=== PATIENT | female | born 1950 | race Caucasian/White ===

== ENCOUNTER → 2023-04-02 16:31 | Outpatient (CLI) | payer MEDICARE, OTHER, SELFPAY ==
--- NOTE | 2023-04-02 16:50 | DI.RAD.S_ITS ---
PROCEDURE: XR TOE LT MIN 2V INDICATIONS: PAIN FRACTURE TECHNIQUE: AP view of the foot and two views of the great toe acquired. COMPARISON: None. FINDINGS: Bones: There is a comminuted mildly displaced intra-articular fracture of the 1st proximal phalangeal head. Generalized osteopenia. Soft tissues: No suspicious soft tissue densities. IMPRESSION: Comminuted mildly displaced intra-articular fracture of the 1st proximal phalangeal head. Approved by: Jonh Campbell M.D. on 04/03/2023 at 13:37
== END ==
PROVIDERS: Referring Provider Podiatrist Foot & Ankle Surgery; Visit Provider Podiatrist Foot & Ankle Surgery
DX: S92.412A Displaced fracture of proximal phalanx of left great toe, initial encounter for closed fracture (principal); M25.572 Pain in left ankle and joints of left foot
CPT/HCPCS: 73660

== ENCOUNTER → 2023-04-10 12:28 | Outpatient (CLI) | payer MEDICARE, OTHER, SELFPAY ==
--- NOTE | 2023-04-10 | DI.RAD.S_ITS ---
Bone Density Report Name: AYAN COATES Age: 72 Sex: Female Ethnicity: White Date of : 1950 Indication: postmenopausal; screening for osteoporosis; Referring Provider: BALAJI HARVEY Study: Bone densitometry was performed. Exam Date: April 10, 2023 Accession number: [id number] Bone Density: Region BMD T-score Z-score Classification AP Spine(L1-L4) 0.930 -1.1 1.1 Osteopenia World Health Organization criteria for BMD impression classify patients as: Normal (T-score at or above -1.0), Osteopenia (T-score between -1.0 and -2.5), or Osteoporosis (T-score at or below -2.5). Impression: The patient has low bone mass, based on the Total Spine T-score. Discussion: BONE DENSITY IS LOW AT ONE OR MORE SKELETAL SITES. This patient's lowest T-score is low at one or more skeletal sites. It meets the World Health Organization's (WHO) criteria for low bone mass (T-score between -1.0 and -2.5). The patient's 10-year risk of fracture as calculated by FRAX is less than the threshold where pharmacological therapy is recommended by the National Osteoporosis Foundation (NOF). However, all treatment decisions require clinical judgment and consideration of individual patient factors, including patient preferences, comorbidities, previous drug use, risk factors not captured in the FRAX model (e.g., frailty, falls, vitamin D deficiency, increased bone turnover, interval significant decline in bone density) and possible under or overestimation of fracture risk by FRAX. The patient should follow a healthful lifestyle (good nutrition with adequate calcium and vitamin D, and appropriate weight-bearing exercise). Follow-Up: Consider repeating this study in 2 to 3 years to reassess this patient's status, or sooner if there is some new clinical indication. Reported by: MARCELL MELENDEZ M.D. on 04/11/2023 4:54:00 PM.
== END ==
PROVIDERS: Referring Provider Podiatrist Foot & Ankle Surgery; Visit Provider Podiatrist Foot & Ankle Surgery
DX: Z13.820 Encounter for screening for osteoporosis; S92.912A Unspecified fracture of left toe(s), initial encounter for closed fracture; Z78.0 Asymptomatic menopausal state; M85.88 Other specified disorders of bone density and structure, other site; Z90.710 Acquired absence of both cervix and uterus
CPT/HCPCS: 77080

== ENCOUNTER → 2023-05-07 16:25 | Outpatient (CLI) | payer MEDICARE, OTHER, SELFPAY ==
--- NOTE | 2023-05-07 | DI.RAD.S_ITS ---
PROCEDURE: XR FOOT LT MIN 3V INDICATIONS: f/u fx TECHNIQUE: 3 views of the foot were acquired. COMPARISON: [facility], CR, XR TOE LT MIN 2V, 04/02/2023, 17:04. FINDINGS: Bones: Redemonstration of comminuted displaced intra-articular fracture of the distal aspect of the proximal 1st phalanx. Mild callus formation to suggest healing. Soft tissues: No tibiotalar joint effusion. Achilles tendon appears normal. IMPRESSION: Healing fracture of the distal aspect of the 1st proximal phalanx. Dictated by: El Gallegos M.D. on 05/08/2023 at 10:40 Approved by: El Gallegos M.D. on 05/08/2023 at 10:42
== END ==
PROVIDERS: Referring Provider Podiatrist Foot & Ankle Surgery; Visit Provider Podiatrist Foot & Ankle Surgery
DX: S92.412D Displaced fracture of proximal phalanx of left great toe, subsequent encounter for fracture with routine healing (principal)
CPT/HCPCS: 73630

== ENCOUNTER 2023-06-18 10:35 | Emergency (ER) | payer MEDICARE, OTHER, SELFPAY ==
[2023-06-18 10:43] VITALS: BP 108/56; PULSE 90; RESP 15; TEMP 36.6; O2SAT 99; BMI 18.3
--- NOTE | 2023-06-18 11:45 | ED_ITS ---
HPI - Head Injury <Marlin Morris PA-C - Last Filed: 06/18/23 12:02> General Chief complaint: Head Injury Stated complaint: fall, head injury/bleeding Time Seen by Provider: 06/18/23 10:46 Source: patient and family Mode of arrival: Ambulatory History of Present Illness HPI Narrative: Patient is a 72-year-old female with Parkinson's disease who presents to the emergency room after a fall. She was attempting to put on her slippers and lost her balance, and hit her forehead on the corner of a book shelf when she fell. She is not taken any blood thinner medicines. She did not lose consciousness. The fall was not preceded by dizziness or syncope. Patient and her report that she falls frequently, 2 to 3 times a week. She has double vision at baseline as a complication of her Parkinson disease. She has no new vision changes, no headache, no nausea or vomiting today. Related Data Allergies Allergy/AdvReac Type Severity Reaction Status Date / Time Penicillins Allergy Intermediate Hives Verified 06/18/23 10:47 Review of Systems <Marlin Morris PA-C - Last Filed: 06/18/23 12:02> Review of Systems ROS Unobtainable: All systems reviewed & are unremarkable except as noted in HPI and below Patient History <Marlin Morris PA-C - Last Filed: 06/18/23 12:02> Social History Smoking Status: Never smoker Smoking Status: Never smoker alcohol intake frequency: 0-2 drinks per day Substance Use Type: does not use Exam <Marlin Morris PA-C - Last Filed: 06/18/23 12:02> Narrative Exam Narrative: GENERAL: 72 year old patient appears stated age. Well-developed patient, in no distress. Patient has parkinsonian tremor. NEURO: AOx3. HEAD: Laceration on left forehead. Laceration is approximately 2.5 cm long, edges are quite thin. No tenderness with skull palpation, no evidence of depressed skull fracture. EYES: Pupils equal round and reactive. Extraocular motions intact. No scleral icterus. No injection or drainage. ENT: Nose without bleeding or purulent drainage. Throat without erythema, tonsillar hypertrophy or exudate. Airway patent. No eden sign. RESPIRATORY: No distress, no increased work of breathing EXTREMITIES: No edema or joint tenderness. SKIN: No rash or erythema of visible areas Initial Vital Signs Initial Vital Signs: Vital Signs Temperature 97.8 F 06/18/23 10:43 Pulse Rate 90 06/18/23 10:43 Respiratory Rate 15 06/18/23 10:43 Blood Pressure 108/56 L 06/18/23 10:43 Pulse Oximetry 99 06/18/23 10:43 Oxygen Delivery Method Room Air 06/18/23 10:43 <Eleni Chapa MD - Last Filed: 06/18/23 19:09> Initial Vital Signs Initial Vital Signs: Vital Signs Temperature 97.8 F 06/18/23 10:43 Pulse Rate 90 06/18/23 10:43 Respiratory Rate 15 06/18/23 10:43 Blood Pressure 108/56 L 06/18/23 10:43 Pulse Oximetry 99 06/18/23 10:43 Oxygen Delivery Method Room Air 06/18/23 10:43 Procedures <Marlin Morris PA-C - Last Filed: 06/18/23 12:02> Laceration Repair Laceration 1: Time of procedure: 11:21 Site: face (left forehead) Side (If applicable): left Size (cm): 2.5 Description: linear, flap and clean Depth: simple, single layer Local Anesthetic: lidocaine 2% Amount of anesthesia used (mL): 1 Pre-repair: wound explored and irrigated extensively Skin layer closed with: nylon Skin layer suture size: 6-0 Number of sutures: 5 Technique: simple, interrupted Course <Marlin Morris PA-C - Last Filed: 06/18/23 12:02> Orders Ordered: Discontinued Medications Bacitracin (Bacitracin Oint 0.9 Gm Pckt) 1 applic TOP NOW ONE Stop: 06/18/23 11:43 Last Admin: 06/18/23 11:58 Dose: 1 applic Documented By: OW Vital Signs Vital signs: Vital Signs - 8 hr 06/18/23 12:07 Pulse Rate 81 Respiratory Rate 20 Blood Pressure 142/61 H Pulse Oximetry 100 Oxygen Delivery Method Room Air <Eleni Chapa MD - Last Filed: 06/18/23 19:09> Orders Ordered: Discontinued Medications Bacitracin (Bacitracin Oint 0.9 Gm Pckt) 1 applic TOP NOW ONE Stop: 06/18/23 11:43 Last Admin: 06/18/23 11:58 Dose: 1 applic Documented By: OW Vital Signs Vital signs: Vital Signs - 8 hr 06/18/23 12:07 Pulse Rate 81 Respiratory Rate 20 Blood Pressure 142/61 H Pulse Oximetry 100 Oxygen Delivery Method Room Air MDM - Head Injury <Marlin Morris PA-C - Last Filed: 06/18/23 12:02> MDM Narrative Medical decision making narrative: Multiple etiologies for patient's symptoms considered including, but not limited to: Scalp laceration, skull fracture, intracranial bleed. Patient, patient's and I had a shared decision-making conversation about obtaining CT of the head to rule out intracranial bleeding. Patient does not take any blood thinner medicines. Patient and her both believe that she is at her baseline and do not wish to proceed with a head CT. I agree that this is reasonable, discussed strict return precautions if she develops any symptoms. 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 The laceration repaired as documented above. Patient tolerated well. Patient discharged, verbalizes return precautions and laceration care. Patient's symptoms improved over duration of stay with above-stated therapies. Findings and discharge diagnosis discussed with patient/family followed by verbalization of understanding Return precautions discussed with patient/family whom verbalize understanding of diagnosis and plan Discharge Plan Departure Patient Disposition: Home Clinical Impression: Laceration of scalp Qualifiers: Encounter type: initial encounter Qualified Code(s): S01.01XA - Laceration without foreign body of scalp, initial encounter Instructions: DI for Closed Head Injury, How to Care for a Surgical Wound- Stitches Activity Restrictions/Additional Instructions: *You have been diagnosed with scalp laceration. Please apply bacitracin ointment twice a day to help prevent infection. The sutures can be removed in 5-7 days, depending on healing. You can come back to the ER or to the walk-in clinic for suture removal. As we discussed, we decided together not to do a CT scan of your head today. If you have any severe headache, change in mental status, nausea, vomiting, or new vision changes, you should return for reassessment and imaging of your head. *What to do: *Please continue to take your regular medications as directed. [ ] New medication prescriptions sent to your pharmacy: [ ] [ ] New medication written as a paper prescription [x] No new medications given *Please follow up with your primary care provider in 2-3 days, call for an appointment. Let them know you were seen in the Emergency Department and that we ask that you be seen in follow up. We will electronically transmit a record of today's note if your PCP is in our system *If you do not have a primary care provider please contact the [facility] Resource line at [phone]. They will ask some questions about your medical history and help get you set up with a doctor in the community. *Return to Emergency Department if you should have any new, worsening or concerning symptoms, such as [fever greater than 101 F, shaking chills, worsening pain, persistent vomiting or other concerning symptoms]. Stand Alone Forms: Patient Portal/API ED Sign-out <Eleni Chapa MD - Last Filed: 06/18/23 19:09> Cosign ED Attending Johnature Attestation: I did not see this patient. I was available all times for consultation.
[2023-06-18] MEDS: BACITRACIN OINT 0.9 GM PCKT 1 APPLIC TOP (11:58)
[2023-06-18 12:07] VITALS: BP 142/61; PULSE 81; RESP 20; O2SAT 100
== END 2023-06-18 12:09 | disposition home or self-care (01) ==
PROVIDERS: Emergency Provider Physician Assistant
DX: S01.01XA Laceration without foreign body of scalp, initial encounter (principal); W18.30XA Fall on same level, unspecified, initial encounter; G20.A1 Parkinson's disease without dyskinesia, without mention of fluctuations
CPT/HCPCS: 12011; 99282; 99283

== ENCOUNTER 2025-06-18 04:30 | Emergency (ER) | payer MEDICARE, OTHER, SELFPAY ==
[2025-06-18] VITALS (10 sets, daily range): BP systolic 135–183; BP diastolic 68–83; PULSE 71–89; RESP 14–53; TEMP 36.4; O2SAT 94–99; BMI 19.0
--- NOTE | 2025-06-18 04:36 | DI.CT.S_ITS ---
PROCEDURE: CT FACIAL BONES WO CON INDICATIONS: GLF, ?facial injuries TECHNIQUE: Noncontrast 2.5 mm thick axial images acquired from the mandible through the frontal sinuses, with coronal and sagittal reformatting. For radiation dose reduction, the following was used: automated exposure control, adjustment of mA and/or kV according to patient size. COMPARISON: None. FINDINGS: Image quality: Excellent. Bones and teeth: Orbital wu are intact. Sinus wu show no fracture or deformity. Nasal bones and septum are intact. Visualized portions of the mandible demonstrate no fractures or subluxation. Zygomatic arches are intact. Pterygoid plates are intact. Visualized portions of the skull base and auditory canals are intact. Sinuses: Paranasal sinuses are aerated, without fluid levels, mucosal thickening, or mucoceles. Mastoid air cells are aerated. Soft tissues: No edema, masses, or fluid collections. No enlarged lymph nodes. No soft tissue lacerations or debris. Vascular: Visualized vascular structures appear normal in the absence of contrast. Bony vascular foramina and canals are intact. IMPRESSION: No acute facial fractures. Dictated by: El Gallegos M.D. on 06/18/2025 at 6:39 Approved by: El Gallegos M.D. on 06/18/2025 at 6:41
--- NOTE | 2025-06-18 04:36 | DI.CT.S_ITS ---
PROCEDURE: CT HEAD/BRAIN WO CON INDICATIONS: GLF TECHNIQUE: Noncontrast 4.5 mm thick angled axial sections acquired from the foramen magnum to the vertex, with coronal and sagittal reformats. For radiation dose reduction, the following was used: automated exposure control, adjustment of mA and/or kV according to patient size. COMPARISON: None. FINDINGS: Image quality: Diagnostic. CSF spaces: Basal cisterns are patent. No extra-axial fluid collections. The ventricles are symmetric in size and shape. Brain: No intracranial bleeds or mass effect. There is cerebral volume loss, with resultant ventricular and sulcal prominence. Bilateral deep brain stimulators in place. There are periventricular and deep white matter chronic small vessel ischemic changes. There is intracranial internal carotid artery atherosclerosis. Skull and face: Calvarium and visualized facial bones appear intact, without suspicious lesions. Sinuses: Visualized sinuses and mastoids are clear. IMPRESSION: No acute intracranial pathology. Deep brain stimulators in place. Dictated by: El Gallegos M.D. on 06/18/2025 at 6:37 Approved by: El Gallegos M.D. on 06/18/2025 at 6:39
--- NOTE | 2025-06-18 04:36 | DI.CT.S_ITS ---
PROCEDURE: CT CERVICAL SPINE WO CON INDICATIONS: GLF TECHNIQUE: Noncontrast 3 mm thick sections acquired from the skull base to the T4 level. Sagittal and coronal reformats were then constructed. For radiation dose reduction, the following was used: automated exposure control, adjustment of mA and/or kV according to patient size. COMPARISON: None. FINDINGS: Image quality: Excellent. Bones: No fractures or dislocations. Multilevel degenerative changes with reversal the normal cervical lordosis. Decreased osseous mineralization. Visualized superior ribs are intact. Soft tissues: Prevertebral soft tissues are normal in thickness. No paravertebral hematomas. No apical pneumothoraces. IMPRESSION: No displaced fracture or traumatic subluxation. Dictated by: El Gallegos M.D. on 06/18/2025 at 6:41 Approved by: El Gallegos M.D. on 06/18/2025 at 6:42
--- NOTE | 2025-06-18 04:38 | EKG_ITS ---
[place] [id number] [address] [place] [id number] Test Date: 2025-06-18 Pat Name: Kaylen Herrera Department: [facility] Room: Gender: Female Cost Consultant: TONY : 1950 Requested By: Order Number: [id number] Reading MD: Marin Keller MD Measurements Intervals [place] Rate: 83 P: 108 [place]: 122 QRS: 38 QRSD: 72 T: 109 QT: 384 QTc: 451 Interpretive Statements Normal sinus rhythm Abnormal QRS-T angle, consider primary T wave abnormality Electronically Signed On 06-18-2025 7:26:13 PDT by Marin Keller MD
--- NOTE | 2025-06-18 04:40 | ED_ITS ---
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 Saavedra at [facility], status post deep brain stimulator surgery for her parkinsonism with battery device right upper anterior chest, had right V1 distribution ophthalmic branch cutaneous zoster infection 3 weeks ago status post Valtrex oral course and residual dermatomal scarring, frequent diarrhea awaiting possible diverting colostomy surgery [facility], with history of frequent falls. Sleeps in a separate room from due to Parkinson associated focalization during sleep, baby monitoring by , heard an audible thumb through the monitoring system, found patient in bathroom with posterior scalp laceration and blood on the floor. Unclear if she had lost consciousness. No suspected seizure, no history of seizures, no incontinence of urine or stool. Could not recall preceding chest pain or shortness of breath, palpitations, focal weakness to face arm or leg, focal numbness to face arm or leg. Denies recent fevers, chills, nausea, vomiting, painful or frequent urination, back pain, abdominal pain, chest pain. She does not take blood thinner medications. She does not remember the details of the incident. She has not take chronic anticoagulation. Right pupil not known to be larger than left pupil. Nausea or vomiting. Has arthritic/deformity left hand apparently not felt to be rheumatoid arthritis, of unclear cause. Related Data Allergies Allergy/AdvReac Type Severity Reaction Status Date / Time Penicillins Allergy Intermediate Hives Verified 06/18/25 04:39 Patient History <Prateek Olivas MD - Last Filed: 06/18/25 08:58> Social History Smoking Status: Never smoker alcohol intake frequency: 0-2 drinks per day Exam <Prateek Olivas MD - Last Filed: 06/18/25 08:58> Narrative Exam Narrative: GENERAL: Well-developed patient, in mild distress. HEAD: Posterior-vertex -midline serpentine shaped 5-cm laceration without crepitance, scarring in distribution of V1 ophthalmic branch right side consistent with reported history of recent herpes zoster earlier this month, without vesicles, without redness/cellulitis changes. EYES: Pupils equal round and reactive. Extraocular motions intact. No scleral icterus. No injection or drainage. Right eyelid seems to be held in preference closed position when she is looking around, she can actively open it however when asked to open her eyes. Right pupil 4 mm compared to 2.5-3 mm left pupil, both seem reactive. Conjugate gaze. ENT: Nose without bleeding, purulent drainage. Throat without erythema, tonsillar hypertrophy or exudate. Airway patent. Dental appliance mouth guard like plastic upper teeth, some missing but not acutely injured in appearance. NECK: Trachea midline. Non tender CARDIOVASCULAR: Regular rate and rhythm without murmurs, gallops, or rubs. RESPIRATORY: Clear to auscultation. Breath sounds equal bilaterally. No wheezes, rales, or rhonchi. GASTROINTESTINAL: Abdomen soft, non-tender, nondistended. EXTREMITIES: No edema or joint tenderness. Subluxation ulnar deviation of left hand which seems to be held in slight flexion, apparently not felt to be rheumatoid arthritis, might be neurologic, chronic and unchanged per at bedside. Scattered scabs lower extremities without obvious edema or gross deformities. BACK: Nontender without deformity or crepitance. No flank tenderness. NEURO: AOx3. Jvxns-owfudmf-anau-left left pupil that seem reactive. No obvious facial droop. Right V1 cutaneous scarring from recent zoster infection. Right eyelid tends to be held in closed position when looking around, but can be open to command. Motor 5/5 upper and lower extremities (ulnar deviation MCPs left- hand might be arthritic, versus post neuralgia/neuropathic, no hand muscle wasting, no similar changes to the contralateral MCPs) SKIN: No rash or erythema of visible areas Initial Vital Signs Initial Vital Signs: Vital Signs Temperature 97.5 F L 06/18/25 04:39 Pulse Rate 74 06/18/25 04:39 Respiratory Rate 16 06/18/25 04:39 Blood Pressure 183/83 H 06/18/25 04:39 Pulse Oximetry 99 06/18/25 04:39 Oxygen Delivery Method Room Air 06/18/25 04:39 <Aav Amin DO - Last Filed: 06/18/25 11:06> Initial Vital Signs Initial Vital Signs: Vital Signs Temperature 97.5 F L 06/18/25 04:39 Pulse Rate 74 06/18/25 04:39 Respiratory Rate 16 06/18/25 04:39 Blood Pressure 183/83 H 06/18/25 04:39 Pulse Oximetry 99 06/18/25 04:39 Oxygen Delivery Method Room Air 06/18/25 04:39 Procedures <Prateek Olivas MD - Last Filed: 06/18/25 08:58> Laceration Repair Laceration 1: Time of procedure: 06:15 Site: scalp (Serpentine posterior vertex midline scalp, no visible foreign body or galea) Size (cm): 5 Description: linear (Serpentine) Depth: simple, single layer Local Anesthetic: lidocaine 1% and with epi Amount of anesthesia used (mL): 5 Pre-repair: wound explored and irrigated extensively Skin layer closed with: ash Number of sutures: 5 Course <Prateek Olivas MD - Last Filed: 06/18/25 08:58> Orders Ordered: ED Orders 06/18/25 04:36 CT cervical spine wo con Stat CT facial bones wo con Stat CT head/brain wo con Stat 06/18/25 04:38 EKG-12 Lead Stat 06/18/25 04:42 Complete Blood Count AUTO DIFF Stat Comprehensive Metabolic Panel Stat Lipase Stat Magnesium Stat NT-proBNP (BNP-Adult 18+) Stat Prothrombin Time INR Stat Troponin I Stat 06/18/25 06:55 Troponin I Stat Discontinued Medications Lidocaine/Epinephrine (Lidocaine 1% W/Epi 10ml) 4 ml INJ INTRA-OP ONE Stop: 06/18/25 06:00 Last Admin: 06/18/25 07:01 Dose: 4 ml Documented By: HNG Vital Signs Vital signs: Vital Signs - 8 hr 06/18/25 04:39 06/18/25 05:15 06/18/25 05:17 Temperature 97.5 F L Pulse Rate 74 Respiratory Rate 16 Blood Pressure 183/83 H 159/81 H Pulse Oximetry 99 94 Oxygen Delivery Method Room Air 06/18/25 05:17 06/18/25 05:30 06/18/25 05:30 Temperature Pulse Rate 89 86 Respiratory Rate 38 H Blood Pressure 146/71 H Pulse Oximetry 95 94 Oxygen Delivery Method 06/18/25 06:00 06/18/25 06:00 06/18/25 06:30 Temperature Pulse Rate 87 80 Respiratory Rate 53 H 39 H Blood Pressure 148/80 H Pulse Oximetry 98 98 Oxygen Delivery Method 06/18/25 06:30 06/18/25 07:00 06/18/25 07:00 Temperature Pulse Rate 77 Respiratory Rate 14 Blood Pressure 152/72 H 138/68 Pulse Oximetry 97 Oxygen Delivery Method 06/18/25 07:30 06/18/25 07:30 06/18/25 08:00 Temperature Pulse Rate 71 Respiratory Rate 15 Blood Pressure 139/71 135/75 Pulse Oximetry 99 Oxygen Delivery Method 06/18/25 08:00 06/18/25 08:30 06/18/25 08:30 Temperature Pulse Rate 80 80 Respiratory Rate 18 18 Blood Pressure 143/71 H Pulse Oximetry 99 99 Oxygen Delivery Method <Ava Amin, DO - Last Filed: 06/18/25 11:06> Orders Ordered: ED Orders 06/18/25 04:36 CT cervical spine wo con Stat CT facial bones wo con Stat CT head/brain wo con Stat 06/18/25 04:38 EKG-12 Lead Stat 06/18/25 04:42 Complete Blood Count AUTO DIFF Stat Comprehensive Metabolic Panel Stat Lipase Stat Magnesium Stat NT-proBNP (BNP-Adult 18+) Stat Prothrombin Time INR Stat Troponin I Stat 06/18/25 06:55 Troponin I Stat Discontinued Medications Lidocaine/Epinephrine (Lidocaine 1% W/Epi 10ml) 4 ml INJ INTRA-OP ONE Stop: 06/18/25 06:00 Last Admin: 06/18/25 07:01 Dose: 4 ml Documented By: HNG Vital Signs Vital signs: Vital Signs - 8 hr 06/18/25 04:39 06/18/25 05:15 06/18/25 05:17 Temperature 97.5 F L Pulse Rate 74 Respiratory Rate 16 Blood Pressure 183/83 H 159/81 H Pulse Oximetry 99 94 Oxygen Delivery Method Room Air 06/18/25 05:17 06/18/25 05:30 06/18/25 05:30 Temperature Pulse Rate 89 86 Respiratory Rate 38 H Blood Pressure 146/71 H Pulse Oximetry 95 94 Oxygen Delivery Method 06/18/25 06:00 06/18/25 06:00 06/18/25 06:30 Temperature Pulse Rate 87 80 Respiratory Rate 53 H 39 H Blood Pressure 148/80 H Pulse Oximetry 98 98 Oxygen Delivery Method 06/18/25 06:30 06/18/25 07:00 06/18/25 07:00 Temperature Pulse Rate 77 Respiratory Rate 14 Blood Pressure 152/72 H 138/68 Pulse Oximetry 97 Oxygen Delivery Method 06/18/25 07:30 06/18/25 07:30 06/18/25 08:00 Temperature Pulse Rate 71 Respiratory Rate 15 Blood Pressure 139/71 135/75 Pulse Oximetry 99 Oxygen Delivery Method 06/18/25 08:00 06/18/25 08:30 06/18/25 08:30 Temperature Pulse Rate 80 80 Respiratory Rate 18 18 Blood Pressure 143/71 H Pulse Oximetry 99 99 Oxygen Delivery Method MDM - Fall <Prateek Olivas MD - Last Filed: 06/18/25 08:58> Lab Data Attestation: I reviewed the patient's lab results. Lab results narrative: White blood cell count 8700, hemoglobin 14.5, platelets adequate. Glucose 95. Normal renal function, serum CO2, electrolytes, liver functions, lipase. Troponin negative. BNP mild elevation. 06/18/25 04:42 06/18/25 04:42 Labs: Lab Results 06/18/25 06/18/25 Range/Units 04:42 06:55 WBC 8.7 (4.5-11.0) X10^3/uL RBC 4.78 (4.0-5.2) X10^6/uL Hgb 14.5 (12.0-16.0) g/dL Hct 43.2 (36-46) % MCV 90.4 (80-100) fL MCH 30.3 (26-34) PG MCHC 33.5 (30-36) % RDW 14.1 (11.6-14.8) % Plt Count 292 (150-400) X10^3/uL Neut % (Auto) 69.0 (50-75) % Lymph % (Auto) 19.7 L (25-40) % [place] % (Auto) 8.4 (3-14) % Eos % (Auto) 2.5 (2-4) % Baso % (Auto) 0.4 (0-2) % Neut # (Auto) 6000 (1376-7141) /uL Lymph # (Auto) 1700 (0034-5836) /uL [place] # (Auto) 700 (0-900) /uL Eos # (Auto) 200 (0-450) /uL Baso # (Auto) 0 (0-100) /uL PT 11.8 (9.4-12.5) SECONDS INR 1.0 (0.9-1.3) Sodium 140 (137-145) mmol/L Potassium 4.7 (3.4-5.1) mmol/L Chloride 106 (98-107) mmol/L Carbon Dioxide 27 (22-32) mmol/L BUN 32 H (7-17) mg/dL Creatinine 0.82 (0.52-1.04) mg/dL Estimated GFR > 60 (>60) mL/min BUN/Creatinine Ratio 39.0 H (6-22) Glucose 95 (70-99) mg/dL Calcium 9.6 (8.4-10.2) mg/dL Magnesium 2.5 H (1.6-2.3) mg/dL Total Bilirubin 0.7 (0.2-1.3) mg/dL AST 32 (14-36) IU/L ALT 10 (<35) IU/L Alkaline Phosphatase 104 (38-126) U/L Troponin I < 0.012 < 0.012 (0.01-0.034) ng/mL NT-Pro-B Natriuret Pep 479 H (<125) pg/mL Total Protein 7.2 (6.3-8.2) g/dL Albumin 4.3 (3.5-5.0) g/dL Globulin 2.9 (1.7-4.1) g/dL Albumin/Globulin Ratio 1.5 (1.0-2.8) Lipase 61 (23-300) U/L Imaging Data CT scan - head: Radiologist's Impression: [address] [address] [address] Scan Report Signed Patient: Kaylen Herrera MR#: [id number] : 1950 Acct:[id number] Age/Sex: 74 / F Date of Service: 06/18/25 Loc: ED Accession Number: [id number] Procedure: CT head/brain wo con Ordering Provider: Prateek Olivas MD PROCEDURE: CT HEAD/BRAIN WO CON INDICATIONS: GLF TECHNIQUE: Noncontrast 4.5 mm thick angled axial sections acquired from the foramen magnum to the vertex, with coronal and sagittal reformats. For radiation dose reduction, the following was used: automated exposure control, adjustment of mA and/or kV according to patient size. COMPARISON: None. FINDINGS: Image quality: Diagnostic. CSF spaces: Basal cisterns are patent. No extra-axial fluid collections. The ventricles are symmetric in size and shape. Brain: No intracranial bleeds or mass effect. There is cerebral volume loss, with resultant ventricular and sulcal prominence. Bilateral deep brain stimulators in place. There are periventricular and deep white matter chronic small vessel ischemic changes. There is intracranial internal carotid artery atherosclerosis. Skull and face: Calvarium and visualized facial bones appear intact, without suspicious lesions. Sinuses: Visualized sinuses and mastoids are clear. IMPRESSION: No acute intracranial pathology. Deep brain stimulators in place. Dictated by: El Gallegos M.D. on 06/18/2025 at 6:37 Approved by: El Gallegos M.D. on 06/18/2025 at 6:39 CT face noncontrast: Radiologist's Impression: [place] [address] CT Scan Report Signed Patient: Kaylen Herrera MR#: [id number] : 1950 Acct:[id number] Age/Sex: 74 / F Date of Service: 06/18/25 Loc: ED Accession Number: [id number] Procedure: CT facial bones wo con Ordering Provider: Prateek Olivas MD PROCEDURE: CT FACIAL BONES WO CON INDICATIONS: GLF, ?facial injuries TECHNIQUE: Noncontrast 2.5 mm thick axial images acquired from the mandible through the frontal sinuses, with coronal and sagittal reformatting. For radiation dose reduction, the following was used: automated exposure control, adjustment of mA and/or kV according to patient size. COMPARISON: None. FINDINGS: Image quality: Excellent. Bones and teeth: Orbital wu are intact. Sinus wu show no fracture or deformity. Nasal bones and septum are intact. Visualized portions of the mandible demonstrate no fractures or subluxation. Zygomatic arches are intact. Pterygoid plates are intact. Visualized portions of the skull base and auditory canals are intact. Sinuses: Paranasal sinuses are aerated, without fluid levels, mucosal thickening, or mucoceles. Mastoid air cells are aerated. Soft tissues: No edema, masses, or fluid collections. No enlarged lymph nodes. No soft tissue lacerations or debris. Vascular: Visualized vascular structures appear normal in the absence of contrast. Bony vascular foramina and canals are intact. IMPRESSION: No acute facial fractures. Dictated by: El Gallegos M.D. on 06/18/2025 at 6:39 Approved by: El Gallegos M.D. on 06/18/2025 at 6:41 CT - cervical spine: Radiologist's Impression: [place] [address] CT Scan Report Signed Patient: Kaylen Herrera MR#: [id number] : 1950 Acct:[id number] Age/Sex: 74 / F Date of Service: 06/18/25 Loc: ED Accession Number: [id number] Procedure: CT cervical spine wo con Ordering Provider: Prateek Olivas MD PROCEDURE: CT CERVICAL SPINE WO CON INDICATIONS: GLF TECHNIQUE: Noncontrast 3 mm thick sections acquired from the skull base to the T4 level. Sagittal and coronal reformats were then constructed. For radiation dose reduction, the following was used: automated exposure control, adjustment of mA and/or kV according to patient size. COMPARISON: None. FINDINGS: Image quality: Excellent. Bones: No fractures or dislocations. Multilevel degenerative changes with reversal the normal cervical lordosis. Decreased osseous mineralization. Visualized superior ribs are intact. Soft tissues: Prevertebral soft tissues are normal in thickness. No paravertebral hematomas. No apical pneumothoraces. IMPRESSION: No displaced fracture or traumatic subluxation. Dictated by: El Gallegos M.D. on 06/18/2025 at 6:41 Approved by: El Gallegos M.D. on 06/18/2025 at 6:42 ECG Data Attestation: I personally reviewed and interpreted this ECG as follows: Interpretation: 0534, normal sinus rhythm with rate of 83, no obvious ST segment elevation or depression changes. Some motion artifact. OH 122, QRS 72, QTC 451. MDM Narrative Medical decision making narrative: 79-year-old female with history of parkinsonism, has frequent falls, had unwitnessed fall in the bathroom heard by the , bloody scalp, unclear if any loss of consciousness but seems amnestic to the events leading up to the fall, and can not seem to remember the fall details. Fwowq-ibrykse-llrq-left pupil that might be new. Scarring V1 ophthalmic cutaneous branch from recent zoster noted. Tends to have eyes open with right eyelid closed but can open and close both yelids to command. Otherwise no focal neuro findings. Labs pending. CT head, face, cervical spine. Keep NPO. EKG normal sinus rhythm with rate of 83, no obvious ischemic changes. Lab data: White blood cell count 8700, hemoglobin 14.5, platelets adequate. Glucose 95. Normal renal function, serum CO2, electrolytes, liver functions, lipase. Troponin negative. BNP mild elevation. Posterior vertex serpentine scalp laceration, no visible foreign body or galea. Local injection lidocaine/epi, irrigated. Closed with ash, see procedure note. CT head shows large ventricles, extracranial wires likely consistent with reported deep brain stimulator for parkinsonism, calcifications, no large bleed obvious to me. 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 See radiology report. CT face no acute changes. See radiology report. CT cervical spine series. See radiology report. Tetanus up-to-date. Qnpya-hilzryr-ddxt-left anisocoria of unclear significance, unclear if acute/trauma related, or not recognized by patient and . Followed by ophthalmology Dr. Branch, consider further evaluation as an outpatient. 0700, Interval troponin pending. Signed out to Dr. Amin. 0800 Dr. Amin-patient signed out to me by Dr. Olivas I have seen evaluated patient myself. She does have a head laceration that is now stapled. She is awake alert. She has some scarring from her recent shingles on her right forehead. Right eyelid is a bit droopy but she is able to open it. Right pupil is dilated in minimally reactive, left pupil is constricted. He is awake alert. Head CT both preliminary report and final report show no intracranial hemorrhage and deep brain stimulator in place. Patient is followed by Dr. Branch ophthalmology for her recent shingles infection. Has been states that it did not involve the cornea. She has a follow up appointment in a couple of weeks. Blood work has been reviewed she has 2- troponins no other significant abnormalities. <Ava Amin, DO - Last Filed: 06/18/25 11:06> Lab Data Labs: Lab Results 06/18/25 06/18/25 Range/Units 04:42 06:55 WBC 8.7 (4.5-11.0) X10^3/uL RBC 4.78 (4.0-5.2) X10^6/uL Hgb 14.5 (12.0-16.0) g/dL Hct 43.2 (36-46) % MCV 90.4 (80-100) fL MCH 30.3 (26-34) PG MCHC 33.5 (30-36) % RDW 14.1 (11.6-14.8) % Plt Count 292 (150-400) X10^3/uL Neut % (Auto) 69.0 (50-75) % Lymph % (Auto) 19.7 L (25-40) % [place] % (Auto) 8.4 (3-14) % Eos % (Auto) 2.5 (2-4) % Baso % (Auto) 0.4 (0-2) % Neut # (Auto) 6000 (3056-2305) /uL Lymph # (Auto) 1700 (5757-2917) /uL [place] # (Auto) 700 (0-900) /uL Eos # (Auto) 200 (0-450) /uL Baso # (Auto) 0 (0-100) /uL PT 11.8 (9.4-12.5) SECONDS INR 1.0 (0.9-1.3) Sodium 140 (137-145) mmol/L Potassium 4.7 (3.4-5.1) mmol/L Chloride 106 (98-107) mmol/L Carbon Dioxide 27 (22-32) mmol/L BUN 32 H (7-17) mg/dL Creatinine 0.82 (0.52-1.04) mg/dL Estimated GFR > 60 (>60) mL/min BUN/Creatinine Ratio 39.0 H (6-22) Glucose 95 (70-99) mg/dL Calcium 9.6 (8.4-10.2) mg/dL Magnesium 2.5 H (1.6-2.3) mg/dL Total Bilirubin 0.7 (0.2-1.3) mg/dL AST 32 (14-36) IU/L ALT 10 (<35) IU/L Alkaline Phosphatase 104 (38-126) U/L Troponin I < 0.012 < 0.012 (0.01-0.034) ng/mL NT-Pro-B Natriuret Pep 479 H (<125) pg/mL Total Protein 7.2 (6.3-8.2) g/dL Albumin 4.3 (3.5-5.0) g/dL Globulin 2.9 (1.7-4.1) g/dL Albumin/Globulin Ratio 1.5 (1.0-2.8) Lipase 61 (23-300) U/L MDM Narrative Medical decision making narrative: 79-year-old female with history of parkinsonism, has frequent falls, had unwitnessed fall in the bathroom heard by the , bloody scalp, unclear if any loss of consciousness but seems amnestic to the events leading up to the fall, and can not seem to remember the fall details. Pcjys-nzaozey-cazv-left pupil at might be new. Scarring V1 ophthalmic cutaneous branch from recent zoster noted. Tends to have eyes open with right eyelid closed but can open eyelid to command. Otherwise no focal neuro findings. Labs pending. CT head, face, cervical spine. Keep NPO. EKG normal sinus rhythm with rate of 83, no obvious ischemic changes. Lab data: White blood cell count 8700, hemoglobin 14.5, platelets adequate. Glucose 95. Normal renal function, serum CO2, electrolytes, liver functions, lipase. Troponin negative. BNP mild elevation. Posterior vertex serpentine scalp laceration, no visible foreign body or galea. Local injection lidocaine/epi, irrigated. Closed with ash, see procedure note. CT head shows large ventricles, extracranial wires likely consistent with reported deep brain stimulator for parkinsonism, calcifications, no large bleed obvious to me. 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 See radiology report. CT face no acute changes. See radiology report. CT cervical spine series. See radiology report. Tetanus up-to-date. Yzszm-czpjxzg-mqzi-left anisocoria of unclear significance, unclear if acute/trauma related, or if on recognized by patient and . Followed by ophthalmology Dr. Branch, consider further evaluation as an outpatient. 0700, Interval troponin pending. Signed out to Dr. Amin. 0800 Dr. Amin-patient signed out to me by Dr. Olivas I have seen evaluated patient myself. She does have a head laceration that is now stapled. She is awake alert. She has some scarring from her recent shingles on her right forehead. Right eyelid is a bit droopy but she is able to open it. Right pupil is dilated in minimally reactive, left pupil is constricted. He is awake alert. Head CT both preliminary report and final report show no intracranial hemorrhage and deep brain stimulator in place. Patient is followed by Dr. Branch ophthalmology for her recent shingles infection. Has been states that it did not involve the cornea. She has a follow up appointment in a couple of weeks. Blood work has been reviewed she has 2- troponins no other significant abnormalities. Discharge Plan Departure Patient Disposition: Home Clinical Impression: Fall Instructions: How to Prevent Falls Activity Restrictions/Additional Instructions: *You have been diagnosed with fall *What to do: At this time right pupil is noted to be more dilated unclear reasoning here but imaging today is negative. Please follow-up with Dr. Branch. I would call Friday for a sooner appointment *Continue to take medications as directed *Follow up with your primary care provider in 2-3 days or call [phone] *Return to ER if you should have increased confusion nausea vomiting or any new, worsening or concerning symptoms Stand Alone Forms: Patient Portal/API
[2025-06-18 04:59] LABS: Add Manual Diff / Slide Review NO; Hematocrit 43.2 % (36-46); Hemoglobin 14.5 g/dL (12.0-16.0); INR 1.0 (0.9-1.3); Lymphocytes Absolute Auto 1700 /uL (1100-4500); Mean Corpuscular HGB Conc 33.5 % (30-36); Mean Corpuscular Hemoglobin 30.3 PG (26-34); Mean Corpuscular Volume 90.4 fL (80-100); Platelet Count 292 X10^3/uL (150-400); Prothrombin Time 11.8 SECONDS (9.4-12.5)
[2025-06-18 05:03] LABS: Alanine Aminotransferase 10 IU/L (<35); Albumin 4.3 g/dL (3.5-5.0); Albumin Globulin Ratio 1.5 (1.0-2.8); Alkaline Phosphatase 104 U/L (38-126); Blood Urea Nitrogen 32 mg/dL (7-17); Calcium 9.6 mg/dL (8.4-10.2); Carbon Dioxide 27 mmol/L (22-32); Chloride 106 mmol/L (98-107); Estimated Glomerular Filt Rate > 60 mL/min (>60); Globulin 2.9 g/dL (1.7-4.1); Glucose 95 mg/dL (70-99); HEMOLYSIS < 15 (0-50); Lipase 61 U/L (23-300); Magnesium 2.5 mg/dL (1.6-2.3); Potassium 4.7 mmol/L (3.4-5.1); Sodium 140 mmol/L (137-145); Total Protein 7.2 g/dL (6.3-8.2)
[2025-06-18 05:15] LABS: NT-proBNP (BNP-Adult 18+) 479 pg/mL (<125); Troponin I < 0.012 ng/mL (0.01-0.034)
--- NOTE | 2025-06-18 05:19 | PC.NURSE ---
pt was incontinent of stool, performed a full bed change, new brief, pt is now in clean gown with call light within reach
[2025-06-18] MEDS: LIDOCAINE 1% W/EPI 10ML 4 ML INJ (07:01)
[2025-06-18 07:40] LABS: Troponin I < 0.012 ng/mL (0.01-0.034)
== END 2025-06-18 08:20 | disposition home or self-care (01) ==
PROVIDERS: Emergency Medicine; Emergency Provider Emergency Medicine
DX: S01.01XA Laceration without foreign body of scalp, initial encounter (principal); G20.C Parkinsonism, unspecified; H57.04 Mydriasis; W18.30XA Fall on same level, unspecified, initial encounter; Z96.82 Presence of neurostimulator; Z91.81 History of falling
CPT/HCPCS: 12002; 36415; 70450; 70486; 72125; 80053; 83690; 83735; 83880; 84484; 85025; 85610; 93005; 93010; 99283; 99284

== ENCOUNTER 2025-07-02 15:04 | Emergency (ER) | payer MEDICARE, OTHER, SELFPAY ==
[2025-07-02 15:08] VITALS: BP 112/61; PULSE 62; RESP 16; TEMP 36.6; O2SAT 98; BMI 17.7
[2025-07-02] MEDS: LIDOCAINE 2% INJ SDV 5ML 2 ML INJ (16:07)
--- NOTE | 2025-07-02 17:39 | CM.SWNOTE ---
ED CEMENT GUN OPERATOR Note Patient is 74 y/o female who presents to ED via private vehicle with spouse after GLF, patient hit head, presents with laceration above right eyebrow. Patient had similar presentation to the ED on 06/18/25. Patient's PCP is Nicol Donohue PA-C, patient has Medicare insurance. Patient sees Neurologist Dr. Saavedra At [facility]. Patient has hx of Parkinson's Disease, recent Shingles dx and hx of GLFs. CEMENT GUN OPERATOR receives consult from RN due to concern for additional caregiver support at home. CEMENT GUN OPERATOR enters room to meet with patient, present in room is patient and patient's spouse. Patient's spouse is retired surgeon. Patient presents as A/Ox4, patient's spouse does a majority of the communicating regarding patient. Patient and spouse reside in [place]. It is reported that patient has narrow wheelchair and can ambulate, but at times patient slips and falls. It is reported that patient slipped and fell today in the shower. It is reported that patient receives support from spouse for household ADLs. Both patient and spouse indicate that things are going well at home. It is reported that patient has friends that visit often and patient and spouse have some local children that live near by and stay in contact with them. It is reported that patient's daughter in [place] is looking into purchasing a bed monitor for patient. CEMENT GUN OPERATOR discusses caregivers and in home supports, patient and spouse indicate some interest in these services. It is reported that patient's spouse has utilized respite caregivers for patient in the past when he has gone out of town. CEMENT GUN OPERATOR provides patient and spouse with lists of private pay and agency caregivers, senior resource guide and lists of personal emergency response systems (such as a life alert). Spouse and patient indicate that they have close follow up with PCP. ED provider to further evaluate and treat patient, patient to discharge to home with spouse upon medical clearance. Plan: patient to d/c to home with spouse upon medical clearance with caregiver resources provided, patient to f/u with outpatient providers. ROSA Nunes
--- NOTE | 2025-07-02 18:29 | ED_ITS ---
<Statement entered by Marin Albright, DO - 07/02/25 21:55>
--- NOTE | 2025-07-02 18:29 | ED.FALL ---
HPI - Fall General Chief Complaint: Fall Stated Complaint: fall in bathroom, hit head and nose. Bleeding cont Time Seen by Provider: 07/02/25 15:23 History of Present Illness HPI Narrative: 74-year-old female with history of Parkinson's disease (followed by Dr Saavedra at [place]) s/p deep brain stimulator surgery with battery device right upper anterior chest, here with her for a laceration on her forehead. states patient was walking through the bathroom after a shower, and she tripped and fell hitting her forehead on the ground and sustaining a laceration. Patient did not lose consciousness. Since then she has had normal mental status, no vomiting, no dizziness or headache, no complaints and has been states she has her normal self. She did just fall several weeks ago, striking the back of her head and had to get ash here in this ED. prior to that she had shingles over her right forehead (V1, took Valtrex) and eyelid which caused her eye to be swollen shut. When she was in the ED for her previous fall, she was discovered to have a dilated pupil that did not respond to light. Her is a retired general surgeon and believes this could be related to her shingles as it had affected the eye. A CT with scan was done at that time which was completely normal. Has been states that he has not noticed any changes in the patient's neurologic status since her fall today. She has a history of many falls due to her Parkinson's. She denies any pain or discomfort of her hands and wrists and does not think she brace the fall with those. 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 No suspected seizure no history of seizures no incontinence of urine or stool. Patient could not recall preceding chest pain, shortness of breath, palpitations, weakness, or numbness. No blood thinners. She states she remembers the details of falling Related Data Allergies Allergy/AdvReac Type Severity Reaction Status Date / Time Penicillins Allergy Intermediate Hives Verified 06/18/25 04:39 Review of Systems Review of Systems ROS Unobtainable: All systems reviewed & are unremarkable except as noted in HPI and below Patient History alcohol intake frequency: 0-2 drinks per day Alcohol type: wine Exam Narrative Exam Narrative: GENERAL: [74] year old patient appears stated age. Well-developed patient, in no acute distress. HEAD: Atraumatic. Normocephalic. 5 cm laceration to the right forehead, above the eyebrow. Linear, no foreign body noted, little to no active bleeding. EYES: Right pupil 4 mm compared to 2.5-3 mm left pupil, both seem reactive. Conjugate gaze. Extraocular motions intact. No scleral icterus. No injection or drainage. ENT: Nose without bleeding, purulent drainage. Throat without erythema, tonsillar hypertrophy or exudate. Airway patent. NECK: Trachea midline. Non tender CARDIOVASCULAR: Regular rate and rhythm without murmurs, gallops, or rubs. RESPIRATORY: Clear to auscultation. Breath sounds equal bilaterally. No wheezes, rales, or rhonchi. EXTREMITIES: No edema or joint tenderness. NEURO: AOx3. [id number]-left left pupil that seem reactive. No obvious facial droop. Right V1 cutaneous scarring from recent zoster infection. Right eyelid tends to be held in closed position when looking around, but can be open to command. Motor 5/5 upper and lower extremities. Chronic contracture of the left hand noted. No tenderness to palpation, swelling or ecchymosis, or pain with range of motion of bilateral hands, wrists, and forearms. SKIN: No rash or erythema of visible areas Initial Vital Signs Initial Vital Signs: Vital Signs Temperature 97.9 F 07/02/25 15:08 Pulse Rate 62 07/02/25 15:08 Respiratory Rate 16 07/02/25 15:08 Blood Pressure 112/61 07/02/25 15:08 Pulse Oximetry 98 07/02/25 15:08 Oxygen Delivery Method Room Air 07/02/25 15:08 Procedures Laceration Repair Laceration 1: Time of procedure: 18:10 Site: face (Forehead) Side (If applicable): right Size (cm): 5 Description: linear Depth: simple, single layer Local Anesthetic: lidocaine 2% and with epi Amount of anesthesia used (mL): 3 Pre-repair: wound explored and irrigated extensively Skin layer closed with: nylon Skin layer suture size: 5-0 Number of sutures: 9 Technique: simple, interrupted Course Orders Ordered: ED Orders 07/02/25 15:25 Consult to COORDINATE MEASURING MACHINE OPERATOR - Buckle Wire Inserter Stat Discontinued Medications Lidocaine HCl (Lidocaine 2% Inj Sdv 5ml) 2 ml INJ NOW ONE Stop: 07/02/25 15:44 Last Admin: 07/02/25 16:07 Dose: 2 ml Documented By: KELLEY Vital Signs Vital signs: Vital Signs - 8 hr 07/02/25 15:08 Temperature 97.9 F Pulse Rate 62 Respiratory Rate 16 Blood Pressure 112/61 Pulse Oximetry 98 Oxygen Delivery Method Room Air MDM - Fall MDM Narrative Medical decision making narrative: Multiple etiologies for patient's symptoms considered including, but not limited to: Laceration, head injury, concussion, intracranial hemorrhage Prior Charts reviewed: ED visit from 06/18/25 Imaging reviewed: CT head from 06/18/25 Patient had an unwitnessed ground level fall in her bathroom today, found immediately by her with no loss of consciousness, vomiting, dizziness or headache, or other symptoms since the injury. She has a head laceration, 5 cm on her forehead. states she has been at her baseline since the fall with no cognitive or neurologic decline, her examination seems consistent with previous examinations that are her baseline, her pupil is still enlarged on the right side but it seems mildly improved when compared to her ER visit from 2 weeks ago and her feels that it is slightly smaller than before as well. He states that her cognitive function has only continued to improve since that last ER visit and she is at her baseline now. Has been strongly wishes to avoid another head CT today. She is not on blood thinners. Head CT not deemed to be necessary at this time. Forehead lac was repaired with 9 interrupted nylon sutures, patient will see PCP for suture removal. She is supposed to follow up with an tray server for her pupil following the shingles infection very soon. During the patient's stay she has continued to have her typical and baseline neurologic and cognitive function. She answered all my questions appropriately and was able to explain how she fell. She was seen by COORDINATE MEASURING MACHINE OPERATOR to discuss the multiple falls, her is extremely attentive and devoted and he will continue to monitor her as carefully as possible to avoid future falls. Findings and discharge diagnosis discussed with patient/family followed by verbalization of understanding Return precautions discussed with patient/family whom verbalize understanding of diagnosis and plan Discharge Plan Departure Patient Disposition: Home Clinical Impression: Forehead laceration Qualifiers: Encounter type: initial encounter Qualified Code(s): S01.81XA - Laceration without foreign body of other part of head, initial encounter Instructions: How to Care for a Laceration After Repair, How to Prevent Falls Activity Restrictions/Additional Instructions: Thank you for choosing us to care for you today. You were assessed for a laceration to your forehead after a fall. After your examination it was determined that an additional imaging of your head is not necessary at this time. If you experience any vomiting, severe headache, dizziness, or other new or worsening symptoms please return. Your laceration was repaired with 9 stitches. Please keep these clean and dry for the next 12 hours, after which you can wash gently with soap and water twice a day. Your stitches should be removed in 7-10 days. If you experience any signs of infection such as redness, swelling, drainage from the wound please return or see your PCP. Stand Alone Forms: Patient Portal/API
[2025-07-02 19:08] VITALS: BP 110/52; PULSE 86; RESP 16; O2SAT 100
== END 2025-07-02 19:10 | disposition home or self-care (01) ==
PROVIDERS: Emergency Provider Physician Assistant
DX: S01.81XA Laceration without foreign body of other part of head, initial encounter (principal); G20.A1 Parkinson's disease without dyskinesia, without mention of fluctuations; W01.198A Fall on same level from slipping, tripping and stumbling with subsequent striking against other object, initial encounter
CPT/HCPCS: 12013; 99283